=== PATIENT | female | born 1975 | race African-American/Black ===

== ENCOUNTER 2018-10-11 05:13 | Emergency (ER) | payer OTHER ==
[~2018-10-11] VITALS: Ht 162.6 cm; Wt 74.8 kg
[2018-10-11 05:21] VITALS: BP 199/97
[2018-10-11] MEDS ORDERED: NORCO 5-325 TA1 EACH PO (05:33)
[2018-10-11] MEDS ORDERED: FLEXERIL PO (05:33)
== END 2018-10-11 05:39 | disposition home or self-care (01) ==
LOC: M.ERS 05:13
DX: M43.6 Torticollis (principal)